=== PATIENT | female | born 1960 | race Caucasian/White ===

== ENCOUNTER 2016-11-10 23:45 | Emergency (ER) | payer OTHER ==
[~2016-11-10 23:45] MED LIST: ADVIL PO; AMB5 PO; EMBEDA PO; ENDOCET1 TA3 PO; FLEX PO; MAXALT10 MG PO; MAXALTODT1 PO; MSIMMREL PO; NEXIUM40 PO; NITROQUICK0.4 MG SL; NITROSTAT0.4 MG SL; PERCOCET1 TA4 PO; PR25 PO; TREXIMET1 TAB PO; VOLT75 PO; XANAX1 MG PO; ZANAFLEX 4 MG TA4 MG PO; ZOFRAN4 PO; [UNRECOGNIZED DRUG - CODE] PO; [UNRECOGNIZED DRUG - OTHER] PO
[2016-11-11 00:30] LABS: BASOPHILS 0.1 %; BASOPHILS ABSOLUTE 0.01 10/3/uL (0.0-0.16); EOSINOPHILS 0.2 %; EOSINOPHILS ABSOLUTE 0.02 10/3/uL (0.0-0.53); ER CBC TAT 0 Hrs 03 Mins; HEMOGLOBIN 12.2 g/dL (12.0-16.0); IMMATURE GRANULOCYTES 0.3 %; IMMATURE GRANULOCYTES ABSOLUTE 0.03 10/3/uL (0.0-0.11); LYMPHOCYTES 15.3 %; LYMPHOCYTES ABSOLUTE 1.78 10/3/uL (0.67-4.30); MEAN CORPUSCULAR HEMOGLOB 27.4 pg (26.0-34.0); MEAN CORPUSCULAR VOLUME 83.1 fL (80-100); MEAN PLATELET VOLUME 9.1 fL (9.2-13.0); MONOCYTES 6.9 %; NEUTROPHILS 77.2 %; NEUTROPHILS ABSOLUTE 8.99 10/3/uL (2.02-8.40); RBC DISTRIBUTION WIDTH 13.7 % (12.0-16.0); RED CELL COUNT 4.45 10/6/uL (4.0-5.6); WHITE BLOOD CELLS 11.6 10/3/uL (4.5-10.5)
[2016-11-11 00:32] LABS: MANUAL DIFF NO %; PLATELET COUNT 209 10/3/uL (150-400)
[2016-11-11 00:47] LABS: A/G RATIO 0.9 (0.7-1.9); ALBUMIN 3.3 G/DL (3.5-5.0); ALKALINE PHOSPHATASE 201 U/L (45-117); BUN (BLOOD UREA NITROGEN) 12 MG/DL (6-23); CALCIUM, SERUM 8.9 MG/DL (8.5-10.4); CHLORIDE, SERUM 108 MMOL/L (96-112); CO2 (CARBON DIOXIDE) 24 MMOL/L (24-34); CREATININE 0.67 MG/DL (0.55-1.02); GFR AFRICAN AMERICAN 115 ML/MIN (>=60); GFR NON AFRICAN AMERICAN 100 ML/MIN (>=60); GLOBULIN 3.8 G/DL (2.5-4.1); GLUCOSE, SERUM 117 MG/DL (60-99); POTASSIUM, SERUM 4.1 MMOL/L (3.5-5.3); SGOT(AST) 62 U/L (5-40); SGPT(ALT) 83 U/L (5-65); SODIUM, SERUM 140 MMOL/L (135-148); TOTAL BILIRUBIN 0.5 MG/DL (0-1.2); TOTAL PROTEIN 7.1 G/DL (6.0-8.5)
[2016-11-11 01:29] LABS: SED RATE 22 MM/HR (0-20)
[2016-11-11 02:56] LABS: ASCORBIC ACID (UR NOT ORDER) NEG (NEG); BILIRUBIN, URINE NEGATIVE (NEG); ER URINALYSIS TAT 0 Hrs 00 Mins; KETONE, URINE 20 MG/DL (NEG); LEUKOCYTE ESTERASE(NOT OR MOD (NEG); NITRITE (URINE) NEG (NEG); WBC (NOT ORDERED) (RFLEX) 28 (0-5)
== END 2016-11-11 03:58 | disposition home or self-care (01) ==
LOC: ER 23:45
PROVIDERS: Specialist
DX: M25.542 Pain in joints of left hand (principal); M25.541 Pain in joints of right hand; M25.562 Pain in left knee; M25.561 Pain in right knee; M25.572 Pain in left ankle and joints of left foot; M25.571 Pain in right ankle and joints of right foot; G89.4 Chronic pain syndrome; N39.0 Urinary tract infection, site not specified; Z88.1 Allergy status to other antibiotic agents; Z88.5 Allergy status to narcotic agent; Z79.891 Long term (current) use of opiate analgesic; Z79.899 Other long term (current) drug therapy
CPT/HCPCS: 73560-RT; 80053; 81001; 85025; 85652; 87077; 87086; 87186; 93005; 96374; 99284; J1170; J1885